=== PATIENT | female | born 2000 | race Caucasian/White ===

== ENCOUNTER 2020-11-19 14:54 | Inpatient (IN) ==
[2020-11-19] MEDS ORDERED: Isovue-370 500 ML BOTTLE IVP ONE (15:47)
[2020-11-19 15:56] LABS: Basophils % 0.2 %; Eosinophils # 0.3 K/mcL (0.0-0.6); Eosinophils % 1.6 %; Hematocrit 41.2 % (35.3-44.9); Hemoglobin 13.6 g/dL (11.5-15.4); Immature Granulocytes % 0.6 % (0-4); Lymphocytes # 1.8 K/mcL (0.6-4.6); Lymphocytes % 11.4 %; Mean Corpuscular Volume 90.7 fL (83.0-100.0); Mean Platelet Volume 10.2 fL (9.4-12.4); Monocytes # 0.8 K/mcL (0.0-1.3); Monocytes % 5.1 %; Platelet Count 351 K/mcL (140-400); Red Blood Count 4.54 M/mcL (3.82-4.97); Red Cell Distribution Width 11.8 % (11.5-14.5); Segmented Neutrophils % 81.1 %; White Blood Count 16.1 K/mcL (4.3-11.1)
[2020-11-19 16:11] LABS: Amorphous Sediment,Urine Few per hpf (None-Few); Bacteria,Urine Few per hpf (None-Few); Bilirubin,Urine Negative (Negative); Blood,Urine Moderate (Negative); Clarity,Urine Turbid (Clear); Color,Urine Yellow (Yellow); Glucose,Urine (UA) Normal (Normal); Ketones,Urine Negative (Negative); Leukocyte Esterase,Urine Large (Negative); Mucus,Urine Moderate per lpf (None-Few); Nitrite,Urine Positive (Negative); Protein,Urine 70 mg/dL (Neg-Trace); Specific Gravity,Urine 1.029 (1.010-1.025); Squamous Epithelial Cell,Urine Moderate per hpf (None-Few); Urobilinogen,Urine Normal (Normal); WBC,Urine TNTC per hpf (0-3)
[2020-11-19] MEDS ORDERED: Morphine Sulfate 2 MG/ML SYRINGE IVP ONE (16:12)
[2020-11-19] MEDS ORDERED: 0.9 % Sodium Chloride 1,000 ML IVC ONE (16:12)
[2020-11-19] MEDS ORDERED: Ondansetron 4 MG/2 ML VIAL IVP ONE (16:12)
[2020-11-19 16:14] LABS: Alanine Aminotransferase 33 Units/L (7-52); Albumin 4.5 g/dL (3.5-5.7); Albumin/Globulin Ratio 1.6 (1.1-2.2); Alkaline Phosphatase 59 Units/L (34-104); Amylase 24 Units/L (29-103); Aspartate Amino Transferase 20 Units/L (13-39); BUN/Creatinine Ratio 14 (6-26); Bilirubin,Direct 0.2 mg/dL (0.0-0.2); Bilirubin,Indirect 0.6 mg/dL (0.0-1.0); Bilirubin,Total 0.8 mg/dL (0.3-1.0); Blood Urea Nitrogen 13 mg/dL (6-20); Calcium 9.4 mg/dL (8.6-10.3); Carbon Dioxide 26 mEq/L (23-29); Chloride 105 mEq/L (98-107); Globulin 2.8 g/dL (2.4-3.5); Glucose 159 mg/dL (70-105); Lipase 9 Units/L (11-82); Osmolality,Calculated 291 (280-300); Potassium 4.1 mEq/L (3.5-5.1); Sodium 139 mEq/L (136-145); Total Protein 7.3 g/dL (6.4-8.9); eGFR For African Americans > 60 (> 60); eGFR For Non-African Americans > 60 (> 60)
[2020-11-19] MEDS ORDERED: *HR* HYDROmorphone (PF) 1 MG/ML SYRINGE IVP ONE (17:20)
[2020-11-19] MEDS ORDERED: cefTRIAXone 2,000 MG in Water for inj. (sterile) 20 ML IVP ONE (17:24)
[2020-11-19] MEDS ORDERED: Ketorolac 30 MG/ML VIAL IVP PRN (21:56)
[2020-11-19] MEDS ORDERED: 0.9 % Sodium Chloride 1,000 ML IVC SCH (22:00)
[2020-11-19] MEDS ORDERED: Naloxone 0.4 MG/ML INJ IVP PRN ×2 (22:03→23:14)
[2020-11-19] MEDS ORDERED: Ondansetron 4 MG/2 ML VIAL IVP PRN ×2 (22:11→23:14)
[2020-11-19] MEDS ORDERED: Hyoscyamine SL 0.125 MG TAB.SUBL SL PRN (23:14)
[2020-11-19] MEDS ORDERED: Ketorolac 15 MG/ML VIAL IVP PRN (23:14)
[2020-11-19] MEDS ORDERED: Acetaminophen IV 1,000 MG/100 ML BAG IVPB PRN (23:14)
[2020-11-19] MEDS ORDERED: levoFLOXacin 500 MG/100 ML 500 MG/100 ML BAG IVPB SCH (23:14)
[2020-11-19] MEDS ORDERED: *HR* Promethazine 25 MG/ML VIAL IM PRN (23:14)
[2020-11-19] MEDS: 0.9 % Sodium Chloride 1,000 ML IVC SCH (23:20)
[2020-11-19] MEDS ORDERED: lamoTRIgine 100 MG TABLET PO SCH (23:30)
[2020-11-19] MEDS ORDERED: Cariprazine Hcl [Vraylar] 4.5 MG PO SCH (23:45)
[2020-11-20 01:01] LABS: Adenovirus Not Detected (Not Detect); Bordetella Pertussis Not Detected (Not Detect); Chlamydophila pneumoniae Not Detected (Not Detect); Coronavirus 229E Not Detected (Not Detect); Coronavirus HKU1 Not Detected (Not Detect); Coronavirus NL63 Not Detected (Not Detect); Coronavirus OC43 Not Detected (Not Detect); Human Metapneumovirus Not Detected (Not Detect); Human Rhinovirus/Enterovirus Not Detected (Not Detect); Influenza A Subtype 2009 H1 Not Detected (Not Detect); Influenza B Not Detected (Not Detect); Mycoplasma pneumoniae Not Detected (Not Detect); Parainfluenza Virus 1 Not Detected (Not Detect); Parainfluenza Virus 2 Not Detected (Not Detect); Parainfluenza Virus 3 Not Detected (Not Detect); Parainfluenza Virus 4 Not Detected (Not Detect); Respiratory Syncytial Virus Not Detected (Not Detect); SARS-CoV-2 Not Detected (Not Detect)
[2020-11-20 03:14] VITALS: BP 145/71
[2020-11-20 06:33] LABS: Basophils % 0.2 %; Hematocrit 36.1 % (35.3-44.9); Immature Granulocytes % 0.4 % (0-4); Lymphocytes % 5.6 %; Mean Corpuscular HGB Conc 32.4 g/dL (31.6-35.5); Mean Corpuscular Hemoglobin 30.3 pg (28.0-33.3); Mean Corpuscular Volume 93.5 fL (83.0-100.0); Monocytes # 1.2 K/mcL (0.0-1.3); Monocytes % 6.5 %; Neutrophils # 16.2 K/mcL (1.6-8.9); Platelet Count 238 K/mcL (140-400); Red Blood Count 3.86 M/mcL (3.82-4.97); Segmented Neutrophils % 87.3 %; White Blood Count 18.5 K/mcL (4.3-11.1)
[2020-11-20 06:35] LABS: Hemoglobin 11.7 g/dL (11.5-15.4)
[2020-11-20] MEDS: 0.9 % Sodium Chloride 1,000 ML IVC SCH (07:36)
[2020-11-20] MEDS ORDERED: cefTRIAXone 2,000 MG in Water for inj. (sterile) 20 ML IVP ONE (09:00)
[2020-11-20] MEDS ORDERED: Cariprazine Hcl [Vraylar] 4.5 MG PO SCH (09:00)
== END 2020-11-20 16:59 | disposition home or self-care (01) | DRG 463 ==
LOC: 3ANU 14:54 → EMEROOARM 14:54 → 3ANU 19:56
PROVIDERS: ADMIT Urology; ATTEND Urology